=== PATIENT | male | born 1955 | race Caucasian/White ===

== ENCOUNTER 2017-10-09 23:08 | Emergency (ER) | payer MEDICARE, MEDICAID ==
[~2017-10-09] VITALS: Ht 177.8 cm; Wt 93.0 kg
[~2017-10-09 23:08] MED LIST: NORCO 5-325 TA1 EACH PO; PREDNISONE20 MG PO; ZITHROMAX250 MG PO; ZYRTEC10 MG PO
[2017-10-09] MEDS ORDERED: GABAPENTIN300 MG PO (23:17)
[2017-10-09] MEDS ORDERED: TOPAMAX25 MG PO (23:18)
--- NOTE | 2017-10-10 13:22 | EKG ---
[facility] [address] [facility] [place] [address] Signed Sinus bradycardia Incomplete right bundle branch block Borderline ECG No previous ECGs available Confirmed by TIAGO CUMMINGS MD ([id number] on 10/10/2017 1:22:32 PM Electronically Signed By: TIAGO CUMMINGS MD 10/10/17 1322 PATIENT NAME: GRAYSON NICHOLAS Electrocardiogram DATE OF : 51 PHYSICIAN: TIAGO CUMMINGS MD REPORT #: [id number] REPORT IS CONFIDENTIAL AND NOT TO BE RELEASED WITHOUT AUTHORIZATION
== END 2017-10-10 02:00 | disposition home or self-care (01) ==
LOC: ED 23:08
DX: R07.89 Other chest pain (principal); M70.80 Other soft tissue disorders related to use, overuse and pressure of unspecified site; Z88.0 Allergy status to penicillin; Z79.899 Other long term (current) drug therapy
CPT/HCPCS: 71010; 80053; 84484; 85025; 93005; 93010; 99284; J1885; J7030